=== PATIENT | female | born 1980 | race Caucasian/White ===

== ENCOUNTER 2019-06-22 13:54 | Outpatient (REF) | payer BC, SELFPAY ==
--- NOTE | 2019-06-22 13:40 | PAPFT_PTH ---
PATIENT: MEGAN GARCIA LOC: [facility] U#:[id number] AGE/SX: 39/F ROOM: RE06/22/[address]: KILO Lala : 1980 BED: DIS: 06/22/2019 SPEC #: [id number] RECD: 06/22/19 17:35 STATUS: [place] REJack #: [id number] [place]: 06/22/19 13:[address]: Karolina Schwarz [facility] Cytology RECD BY: Huyen Young ENTERED: 06/22/19 17:36 SP TYPE: PAPFT OTHR DR: Rod Fonseca Tissues: 1 - CX/ENDOCX FOR PAP SMEARS Procedures: PAP THIN PREP/[facility] Screening HPV DNA PROBE Comments: [id number]
== END 2019-06-22 14:14 ==
LOC: LBN 13:54
PROVIDERS: PCP Family Medicine; Visit Provider Nurse Practitioner Family
DX: R30.0 Dysuria (principal); Z12.4 Encounter for screening for malignant neoplasm of cervix; Z11.51 Encounter for screening for human papillomavirus (HPV)
CPT/HCPCS: 88142; 87086; 87624

== ENCOUNTER 2019-06-22 14:05 | Outpatient (CLI) | payer BC, SELFPAY ==
[2019-06-22 15:53] LABS: TSH (W/Ref FT4) 1.31 uIU/mL (0.36-3.74)
== END 2019-06-22 14:25 ==
PROVIDERS: PCP Nurse Practitioner Adult Health; Visit Provider Nurse Practitioner Family
DX: N92.0 Excessive and frequent menstruation with regular cycle (principal)
CPT/HCPCS: 36415; 84443

== ENCOUNTER 2019-06-25 00:35 | Outpatient (CLI) | payer BC, SELFPAY ==
--- NOTE | 2019-06-25 09:50 | DI.US_ITS ---
SYMPTOM/DIAGNOSIS: MENORRHAGIA, N92.0 PELVIC ULTRASOUND: Transabdominal and transvaginal exams were performed. The uterus measures 9.5 by 5.2 by 7.3 cm. Nabothian cysts are noted in the cervix. No fibroids are identified. The endometrial stripe measures 9 mm. in thickness. Myometrium appears mildly heterogeneous. A follicle is noted on the right ovary. The left ovary is unremarkable. No free fluid or hydronephrosis is seen. IMPRESSION: Mildly enlarged uterus with heterogeneous myometrium. No focal fibroids or endometrial abnormality is seen.
== END 2019-06-25 00:55 ==
PROVIDERS: PCP Nurse Practitioner Adult Health; Visit Provider Nurse Practitioner Family
DX: N92.0 Excessive and frequent menstruation with regular cycle (principal); N85.2 Hypertrophy of uterus
CPT/HCPCS: 76830; 76856

== ENCOUNTER 2019-07-26 18:57 | Outpatient (REF) | payer BC, SELFPAY ==
[2019-07-27 13:38] LABS: Chlamydia Result Negative; GC Result Negative; Specimen Description CERVIX
== END 2019-07-26 19:17 ==
LOC: LBN 18:57
PROVIDERS: PCP Nurse Practitioner Adult Health; Visit Provider Nurse Practitioner Family
DX: Z11.3 Encounter for screening for infections with a predominantly sexual mode of transmission (principal)
CPT/HCPCS: 87491; 87591